=== PATIENT | male | born 1990 | race Caucasian/White ===

== ENCOUNTER → 2018-12-07 | Outpatient (CLI) | payer BC, OTHER ==
--- NOTE | 2018-12-07 15:32 | Diagnostic Imaging Report ---
PROCEDURE: CT chest without contrast. TECHNIQUE: Multiple contiguous axial images were obtained through the chest without the use of intravenous contrast. Auto Exposure Controls were utilized during the CT exam to meet ALARA standards for radiation dose reduction. DATE: December 07, 2018. COMPARISON: None. INDICATION: 28-year-old male, chemical exposure with shortness of breath and abnormal taste in the mouth. PROCEDURE: Axial noncontrasted CT images of the chest. Noncontrasted limits the evaluation of the mediastinum and vascular structures. FINDINGS: There is no identified pulmonary nodule or lung mass. There is no focal airspace consolidation. There is no pneumothorax. There is no pleural effusion. The central airways are patent. The heart is normal in size. There is no pericardial effusion. There is no abnormally enlarged mediastinal or axillary lymph node which meets CT size criteria for adenopathy. The visualized segments of the upper abdomen are unremarkable in appearance. There is no identified acute bony abnormality. IMPRESSION: 1. No acute cardiopulmonary abnormality. 2. Normal CT chest without contrast. Dictated by: Dictated on workstation # [id number]
== END ==
LOC: RAD 14:42
PROVIDERS: ATTEND Internal Medicine
DX: R06.02 Shortness of breath (principal); R07.81 Pleurodynia; R43.9 Unspecified disturbances of smell and taste; Z77.098 Contact with and (suspected) exposure to other hazardous, chiefly nonmedicinal, chemicals
CPT/HCPCS: 71250